=== PATIENT | female | born 1990 | race Hispanic/Latino ===

== ENCOUNTER 2019-08-31 18:04 | Emergency (ER) | payer BC, SELFPAY ==
[2019-08-31 18:18] VITALS: BP 151/88; PULSE 88; RESP 16; TEMP 37.9; O2SAT 100
--- NOTE | 2019-08-31 18:45 | ED.GENADULT ---
HPI - General Adult General Chief complaint: Ear Stated complaint: Sore Throat,Ear Pain Time Seen by Provider: 08/31/19 18:46 Source: patient and RN notes reviewed Mode of arrival: ambulatory Limitations: no limitations History of Present Illness HPI narrative: This is a 28 years old female presented office for evaluation of sore throat since yesterday. Associated with ear fullness this morning.Denies cough, vomiting, or rash. Denies sick contact. She does not smoke. Related Data Allergies Allergy/AdvReac Type Severity Reaction Status Date / Time No Known Allergies Allergy Verified 08/31/19 18:25 Review of Systems Review of Systems: Narrative: CONSTITUTIONAL: Denies fever ENT: Denies rhinorrhea CARDIOVASCULAR: Denies chest pain, palpitations RESPIRATORY: Denies dyspnea, wheezing, cough GASTROINTESTINAL: Denies abdominal pain, nausea, vomiting, diarrhea. GENITOURINARY: Denies urinary symptoms or discharge SKIN: Denies rash MUSCULOSKELETAL: Denies acute back pain, joint pain, or myalgia. NEUROLOGIC: Denies numbness, or focal weakness. [facility] Social History Social History (Updated 08/31/19 @ 18:50 by FÉLIX Whitfield) Smoking status: Never smoker Comments At time of signature, I agree with nursing past medical, surgical, social and family history. There is no relevant family history pertinent to the presenting complaint. Exam Narrative: Exam Narrative: GENERAL: This is a well-nourished, well-developed patient, in no apparent distress. EYES: Sclera clear/white. Vision is grossly intact. EARS: External ears normal, auditory canals clear and without drainage, TMs normal without perforation. Hearing grossly intact. NOSE: External nose normal with no obvious nasal discharge, nares without redness, no rhinorrhea. THROAT: Mucous membranes moist, posterior pharynx clear. NECK: Neck supple, tender with lymphadenopathy CARDIOVASCULAR: Regular rate and rhythm without murmurs, gallops, or rubs. RESPIRATORY: Clear to auscultation. Breath sounds equal bilaterally. No wheezes, rales, or rhonchi. GASTROINTESTINAL: Abdomen soft, non-tender, nondistended. Bowel sounds are active. No hepato-splenomegaly, or palpable masses. No guarding. SKIN: warm, intact with no suspicious lesions or rash, good texture and turgor. NEURO: awake, alert, and oriented to person, place and time. There were no obvious focal neurologic abnormalities. Steady gait [place] Coma Scale Eye Opening: Spontaneous 4 [place]anish[place] Coma Scale Motor: Obeys Commands 6 Tanish[place] Coma Scale Verbal: Oriented 5 Course Vital Signs Vital signs: Vital Signs Temperature 100.2 F H 08/31/19 18:18 Pulse Rate 88 08/31/19 18:18 Respiratory Rate 16 08/31/19 18:18 Blood Pressure 151/88 H 08/31/19 18:18 Pulse Oximetry 100 08/31/19 18:18 Temperature 100.2 F H 08/31/19 18:18 Pulse Rate 88 08/31/19 18:18 Respiratory Rate 16 08/31/19 18:18 Blood Pressure 151/88 H 08/31/19 18:18 Pulse Oximetry 100 08/31/19 18:18 Medical Decision Making MDM Narrative Medical decision making narrative: Discharge instructions reviewed with patient, as well as provided in writing per nursing staff. The instructions also include specific and strict return/GO TO THE ER as well as f/u information. All questions have been answered, and the patient deny any further questions with discharge and discharge plan. Differential Diagnosis Differential Diagnosis: pneumonia, Allergic Rhinitis, Upper respiratory cough syndrome, Pharyngitis, Sinusitis, Bronchitis, otitis media, viral URI, Asthma/reactive airway disease, influenza Medical Records Medical records reviewed: Yes I reviewed the patient's medical records. Vital Signs Vital Signs: Vital Signs Temperature 100.2 F H 08/31/19 18:18 Pulse Rate 88 08/31/19 18:18 Respiratory Rate 16 08/31/19 18:18 Blood Pressure 151/88 H 08/31/19 18:18 Pulse Oximetry 100 08/31/19 18:18 Temperature 100.2 F H 08/31/19
== END 2019-08-31 18:58 | disposition home or self-care (01) ==
PROVIDERS: Emergency Provider Nurse Practitioner
DX: J06.9 Acute upper respiratory infection, unspecified (principal)
CPT/HCPCS: 87880; 99203; G0463

== ENCOUNTER 2022-05-12 11:56 | Outpatient (CLI) | payer BC, SELFPAY ==
--- NOTE | ~2022-05-12 | XR_ITS ---
EXAM: XR lumbar spine min 4V DATE: 05/12/2022 12:20 HISTORY: Lumbar pain with radiation to left lower leg for 2 dasys . COMPARISON: None available. FINDINGS: Lumbar scoliosis. 5 nonrib-bearing lumbar-type vertebral bodies. Pedicles intact. Normal ve rtebral body alignment. Vertebral body heights preserved. Disc spaces maintained. Normal facets and p osterior elements. Osteophytosis versus enthesopathy at the bilateral sacroiliac joints. No fracture or dislocation. IMPRESSION: Mild lumbar scoliosis, otherwise normal lumbar spine radiograph findings. Mild degenerati ve change at the bilateral SI joints. Reviewed, dictated and finalized at location K. IMPRESSION: Mild lumbar scoliosis, otherwise normal lumbar spine radiograph bhaskar blunt. Mild degenerative change at the bilateral SI joints.
== END 2022-05-12 11:57 ==
DX: M47.818 Spondylosis without myelopathy or radiculopathy, sacral and sacrococcygeal region (principal); M41.9 Scoliosis, unspecified
CPT/HCPCS: 72110